=== PATIENT | female | born 1980 | race Two or more races ===

== ENCOUNTER 2025-01-30 15:43 | Emergency (ER) | payer BC, OTHER ==
[~2025-01-30] VITALS: Ht 167.6 cm; Wt 79.6 kg
--- NOTE | 2025-01-30 16:07 | ED.PDOC ---
History of Present Illness HPI Comments 44 y/o F presents with c/o HTN, today. Patient endorses on noticing her blood pressure being elevated, lately, amidst no prior history, with exception of FMHX of HTN, in the past. Patient comments, recently, being placed on low-dose Amlodipine medication from an urgent care facility after being found hyperte nsive then but reports it being ineffective. She denies any chest pain, shortness of breath, headaches, dizziness, vision or speech changes, or other associated symptoms or modifiers at this time. Patient's blood pressure was 237/130 at arrival. 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 BOOTH ATTENDANT Hx Family History Family History: Reviewed,noncontributory to illness, No family hx of Cancer, No family hx of DM, No family hx of Heart holley, No family hx ofKidney holley, No family hx of Liver holley, No family hx of Lung holley, No family hx of Stroke, Family hx of HTN Social History Smoker: Non-Smoker Alcohol: Denies ETOH Use Drugs: Denies Drug Use Lives In: Home Constitutional: denies: chills, diaphoresis, fatigue, fever, malaise, sweats, w eakness, others EENTM: denies: blurred vision, double vision, ear bleeding, ear discharge, ear drainage, ear pain, ear ringing, eye pain, eye redness, hearing loss, mouth pain, mouth swelling, nasal discharge, nose bleeding, nose congestion, nose pain, photophobia, tearing, throat pain, throat swelling, voice changes, others Respiratory: denies: cough, hemoptysis, orthopnea, SOB at rest, shortness of breath, SOB with excertion, stridor, wheezing, others Cardiovascular: denies: chest pain, dizzy spells, diaphoresis, Dyspnea on exertion, edema, irregular heart beat, left arm pain, lightheadedness, palpitations, PND, syncope, others Gastrointestinal: denies: abdomen distended, abdominal pain, blood streaked bowels, constipated, diarrhea, dysphagia, difficulty swallowing, hematemesis, melena, nausea, poor appetite, poor fluid intake, rectal bleeding, rectal pain, vomiting, others Genitourinary: denies: abnormal vagina bleeding, burning, dyspareunia, dysuria, flank pain, frequency, hematuria, incontinence, pain, , vagina di scharge, urgency, others Neurological: reports: headache; denies: dizziness, fainting, left sided numbness, left sided weakness, numbness, paresthesia, pre-existing deficit, right sided numbness, right sided weakness, seizure, speech problems, tingling, tremors, weakness, others Musculoskeletal: denies: back pain, gout, joint pain, joint swelling, muscle pain, muscle stiffness, neck pain, others Integumetry: denies: bruises, change in color, change in hair/nails, dryness, laceration, lesions, lumps, rash, wounds, others Allergic/Immunocompromised: denies: Difficulty Healing, Frequent Infections, Hives, Itching, others Hematologic/Lymphatic: denies: anemia, blood clots, easy bleeding, easy bruising, swollen glands, others Endocrine: denies: excessive hunger, excessive sweating, excessive thirst, excessive urination, flushing, intolerance to cold, intolerance to heat, unexplained weight gain, unexplained weight loss, others Psychiatric: denies: anxiety, bipolar disorder, depression, hopeless, panic disorder, schizophrenia, sleepless, suicidal, others All Other Systems: Reviewed and Negative (Comprehensive systems review obtained and negative except for what is stated in the HPI.) Physical Exam General Appearance: No Apparent Distress (Patient was in no distress at time of evaluation. Patient complain of some mild superficial scalp discomfort.), Normal HEENT: Normal ENT Inspection, Pharynx Normal, TMs Normal Neck: Full Range of Motion, Non-Tender, Normal, Normal Inspection Respiratory: Chest Non-Tender, Lungs Clear, No Accessory Muscle Use, No Respiratory Distress, Normal Breath Sounds Cardiovascular: No Edema, No JVD, No Murmur, No Gallop, Normal Peripheral Pulses, Regular Rate/Rhythm Breast Exam: Deferred Gastrointestinal: No Organomegaly, Non Tender, No Pulsatile Mass, Normal Bowel Sounds, Soft Genitalia: Deferred Pelvic: Deferred Rectal: Deferred Extremities: No calf tenderness, Normal capillary refill, Normal inspection, Normal range of motion, Non-tender, No pedal edema Neurologic: Alert, No Motor Deficits, Normal Affect, Normal Mood, No Sensory D eficits Cerebellar Function: Normal Reflexes: Normal Skin: Dry, Normal Color, Warm Lymphatic: No Adenopathy Was a procedure done? Was a procedure done?: No Differential Dx Considerations may include: HTN emergency, primary HTN new onset, inappropriate medication dosage, sepsis, , UTI X-Ray, Labs, Meds, VS Vital Signs Date Time Temp Pulse Resp B/P (MAP) Pulse Ox O2 Delivery O2 Flow Rate FiO2 01/30/25 21:31 98.8 90 17 168/106 (126) 99 98.8 01/30/25 21:31 168/108 01/30/25 21:00 96 95 176/108 (130) 95 01/30/25 20:35 178/108 01/30/25 17:30 78 01/30/25 16:36 207/120 01/30/25 16:04 97.7 99 16 237/130 (165) 98 97.7 Lab Test 01/30/25 19:55 01/30/25 18:07 01/30/25 16:26 Range/Units Urine Color Light-yellow Yellow Urine Clarity Clear Clear Urine pH 7.0 5.0-9.0 Urine Specific [place] 1.012 1.001-1.035 Urine Protein 1+ H Negative Urine Ketones Negative Negative Urine Blood Negative Negative /uL Urine Nitrite Negative Negative Urine Bilirubin Negative Negative Urine Urobilinogen Normal Negative mg/dL Urine Leukocyte Esterase Negative Negative /uL Urine RBC 1 0 - 4 /hpf Urine Microscopic WBC 1 0-5 /HPF Urine Squamous Epithelial Cells Few <5 /hpf Urine Amorphous Crystals Few None Seen /hpf Urine Bacteria Few H None Seen /hpf Urine Mucus Few None Seen Urine Glucose Normal Normal mg/dL Urine Test Negative Negative Troponin I High Sensitivity 6 5 </=34 ng/L White Blood Count 7.1 4.4-10.8 10^3/uL Red Blood Count 4.95 4.0-5.20 10^6/uL Hemoglobin 13.2 12.2-16.2 g/dL Hematocrit 39.7 36.0-46.0 % Mean Corpuscular Volume 80.2 80.0-100.0 fL Mean Corpuscular Hemoglobin 26.7 L 28.0-32.0 pg Mean Corpuscular Hemoglobin Concent 33.3 32.0-36.0 g/dL Red Cell Distribution Width 14.5 H 11.8-14.3 % Platelet Count 187 140-450 10^3/uL Mean Platelet Volume 8.9 6.9-10.8 fL Neutrophils (%) (Auto) 57.3 37.0-80.0 % Lymphocytes (%) (Auto) 30.7 10.0-50.0 % Monocytes (%) (Auto) 8.4 0.0-12.0 % Eosinophils (%) (Auto) 2.8 0.0-7.0 % Basophils (%) (Auto) 0.8 0.0-2.0 % Neutrophils # (Auto) 4.1 1.6-8.6 10 ^3/uL Lymphocytes # (Auto) 2.2 0.4-5.4 10 ^3/uL Monocytes # (Auto) 0.6 0-1.3 10 ^3/uL Eosinophils # (Auto) 0.2 0-0.8 10 ^3/uL Basophils # (Auto) 0.1 0-0.2 10 ^3/uL Nucleated Red Blood Cells 0.1 % Sodium Level 139 136-145 mmol/L Potassium Level 3.4 L 3.5-5.1 mmol/L Chloride Level 100 98-107 mmol/L Carbon Dioxide Level 30 20-31 mmol/L Anion Gap 9 5-15 Blood Urea Nitrogen 15 9-23 mg/dL Creatinine 0.91 0.550-1.02 mg/dL Glomerular Filtration Rate Calc 80 >90 mL/min BUN/Creatinine Ratio 16.5 10.0-20.0 Serum Glucose 103 74-106 mg/dL Calcium Level 10.3 8.7-10.4 mg/dL Current Medications Medications (Trade) Dose Ordered Sig/Eliud Route Start Time Stop Time Status Last Admin Clonidine HCl (Catapres Tablet) 0.2 mg ONCE ONCE PO 01/30/25 16:00 01/30/25 16:05 DC 01/30/25 16:36 Clonidine HCl (Catapres Tablet) 0.2 mg ONCE ONCE PO 01/30/25 21:30 01/30/25 21:31 DC 01/30/25 21:31 X-Ray, Labs, Meds, VS Comment All studies performed the ED were evaluated by me personally. EKG revealed a si nus rhythm with a rate of 78. RSR in V1 or V2 as well as borderline T-wave abnormalities and a prolonged QT interval. VT interval 157 and QT interval 451. Serum laboratories were unremarkable for any systemic concerns related to blood pressure issues. Patient's blood pressure was reduced into an acceptable zone at time of discharge. Advised patient that she needs to follow up with the primary care provider for discussions related to medication management of what of the very least his poorly controlled hypertension. Patient will also go home with emergent blood pressure medication to be utilize as directed. Time of 1ST Reevaluation: 22:41 Reevaluation 1ST: Improved Consultation: PCP Patient Education/Counseling: Diagnosis, Treatment, Need For Follow Up Family Education/Counseling: Diagnosis, Treatment, No Family Present Additional Information Previous medical encounters reviewed: N/A The following tests were ordered, and results were reviewed by me: urine est, UA, EKG, troponin, BMP, CBC Additional Information was gathered from interviewing the following independent historians: N/A I reviewed and agreed with the following test results read by other providers: N/A I discussed treatment and results with medical personnel and: Patient Departure 1 Departure Time of Disposition: 22:43 Impression: Primary Impression: Hypertensive urgency Disposition: 01 HOME / SELF CARE / HOMELESS Condition: Stable Additional Instructions: Advised patient is a chart to utilize the new amlodipine dosage as well as clonidine as needed. Patient needs to follow up with the primary care provider for discussions related to proper medication management of her poorly controlled hypertension. e-Prescriptions Clonidine Hydrochloride (Clonidine Hcl) 0.2 Mg Tab 1 TAB PO BIDP PRN, #20 TAB 0 Refills To be used if systolic pressures above 160 or diastolic pressures above 90. Prov: JITENDRA PATEL PAC 01/30/25 Amlodipine Besylate (NORVASC TABLET) 5 Mg Tb 1 TAB PO DAILY, #30 TAB 0 Refills Prov: JITENDRA PATEL PAC 01/30/25 Discharged With: Self, Friend Critical Care Note Critical Care Time?: No Stability Stability form required: No Heart Score Heart Score: Heart Score Response (Comments) Value History Slightly Suspicious 0 EKG Repolarization Disturb 1 Age <45 0 Risk Factors 1 or 2 risk factors 1 Troponin Normal limit 0 Total 2 I personally scribed for JITENDRA PATEL PAC ([email or web address]) on 01/30/25 at 16:07. Electronically submitted by Elvin Rosas ([email or web address]). JITENDRA PATEL LOCATED WITHIN [facility] Jan 30, 2025 16:07
[2025-01-30] MEDS: cloNIDine HCL 0.1 MG TAB PO ONE ×2 (16:36→21:31)
[2025-01-30 16:50] LABS: Basophils # (auto) 0.1 10 ^3/uL (0-0.2); Eosinophils # (auto) 0.2 10 ^3/uL (0-0.8); Lymphocytes # (auto) 2.2 10 ^3/uL (0.4-5.4); Mean Corpuscular Hemoglobin 26.7 pg (28.0-32.0); Monocytes # (auto) 0.6 10 ^3/uL (0-1.3); Monocytes % (auto) 8.4 % (0.0-12.0); Neutrophils # (auto) 4.1 10 ^3/uL (1.6-8.6); Nucleated Red Blood Cells % 0.1 %; Red Cell Distribution Width 14.5 % (11.8-14.3)
[2025-01-30 16:52] LABS: Basophils % (auto) 0.8 % (0.0-2.0); Eosinophils % (auto) 2.8 % (0.0-7.0); Hematocrit 39.7 % (36.0-46.0); Hemoglobin 13.2 g/dL (12.2-16.2); Lymphocytes % (auto) 30.7 % (10.0-50.0); Mean Corpuscular Hgb Conc. 33.3 g/dL (32.0-36.0); Mean Corpuscular Volume 80.2 fL (80.0-100.0); Neutrophils % (auto) 57.3 % (37.0-80.0); Platelet Count (auto) 187 10^3/uL (140-450); Red Blood Cells 4.95 10^6/uL (4.0-5.20); White Blood Cell 7.1 10^3/uL (4.4-10.8)
[2025-01-30 16:55] LABS: Chloride 100 mmol/L (98-107); Sodium 139 mmol/L (136-145)
[2025-01-30 16:56] LABS: Anion Gap 9 (5-15); Calcium 10.3 mg/dL (8.7-10.4); Carbon Dioxide 30 mmol/L (20-31)
[2025-01-30 17:01] LABS: BUN/Creatinine Ratio 16.5 (10.0-20.0); Blood Urea Nitrogen 15 mg/dL (9-23); Glucose 103 mg/dL (74-106)
[2025-01-30 17:02] LABS: Potassium 3.4 mmol/L (3.5-5.1)
--- NOTE | 2025-01-30 18:44 | ECG ---
[facility] Test Date: 2025-01-30 Test Time: 17:26:39 Pat Name: BHARATI BOUDREAUX Department: ED Room: Gender: F Educational Paraprofessional: JULIO : 1980 Requested By: JITENDRA PATEL Order Number: [id number] Reading MD: Danielito Moreno Measurements Intervals [place] Rate: 78 P: 63 IN: 157 QRS: 50 QRSD: 95 T: 1 QT: 451 QTc: 514 Interpretive Statements Sinus rhythm RSR' in V1 or V2, probably normal variant Borderline T wave abnormalities Prolonged QT interval Electronically Signed On 01-30-2025 20:59:57 PDT by Danielito Moreno Please click the below link to view image of tracing.
[2025-01-30 20:41] LABS: Urine Amorphous Crystal FEW /hpf (None Seen); Urine Bacteria FEW /hpf (None Seen); Urine Blood Negative /uL (Negative); Urine Clarity Clear (Clear); Urine Color Light-Yellow (Yellow); Urine Mucus FEW (None Seen); Urine Protein, UAD 1+ (Negative); Urine Specific Gravity 1.012 (1.001-1.035); Urine Squamous Epithelial Cell FEW /hpf (<5); Urine Urobilinogen Normal (Negative); Urine WBC 1 /HPF (0-5)
[2025-01-30] MEDS ORDERED: CLON0.2T PO (22:46)
[2025-01-30] MEDS ORDERED: AML5T PO (22:46)
[2025-01-30 22:57] VITALS: BP 154/98; TEMP 98
[2025-01-30 22:58] VITALS: PULSE 77; RESP 18; O2SAT 96
== END 2025-01-31 00:11 | disposition home or self-care (01) ==
LOC: ER 15:43
DX: I16.0 Hypertensive urgency (principal); I10 Essential (primary) hypertension; R51.9 Headache, unspecified
CPT/HCPCS: 36415; 80048; 81001; 81025; 84484; 85025; 93005